=== PATIENT | female | born 1970 | race Caucasian/White ===

== ENCOUNTER → 2024-04-29 11:10 | Outpatient (REF) | payer OTHER, SELFPAY ==
[2024-04-30 15:58] LABS: Rubeola (Measles) IgG Positive; Varicella Zoster IgG (VZV) Positive
[2024-04-30 19:41] LABS: Rubella Positive
[2024-04-30 20:00] LABS: Hepatitis B Surface Antibody Positive
[2024-05-01 11:18] LABS: Mumps Virus IgG Positive
[2024-05-01 23:33] LABS: Quantiferon Mitogen minus NIL 9.97 IU/mL; Quantiferon NIL 0.03 IU/mL; Quantiferon Plus TB1 minus NIL 0.01 IU/mL (<=0.34); Quantiferon Plus TB2 minus NIL 0.01 IU/mL (<=0.34); Quantiferon TB Gold Plus Negative (Negative)
== END ==
LOC: OHS 11:10
PROVIDERS: ATTENDING PHYSICIAN Nurse Practitioner Family
DX: Z23 Encounter for immunization (principal)
CPT/HCPCS: 36415; 86480; 86706; 86735; 86762; 86765; 86787

== ENCOUNTER 2025-09-19 19:55 | Emergency (ER) | payer BC, SELFPAY ==
[2025-09-19 20:03] VITALS: BP 155/77
--- NOTE | 2025-09-19 21:15 | ED.MUSCINJ ---
HPI-Injury
General
Chief Complaint: Musculo-Skeletal Complaint
Time Seen by Provider: 09/19/25 21:02
Nursing documentation reviewed up to this point in time: agreed with
History of Present Illness-Injury
Is this injury a work related problem?: No
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
Initial Injury comments:
55-year-old female presents to the ER for evaluation of right upper extremity discomfort after she fell earlier today. Patient states that she missed the last step walking down into her basement. She landed with her right arm tucked underneath her
body. She denies head injury or loss of consciousness. No pain in the neck. She reports pain greatest at the right elbow. She is right-handed. She states that she also rolled her right ankle but has been able to ambulate without any difficulty.
She also notes an abrasion to her knee. She has not taken any pain relievers for her discomforts prior to arrival.
Review of Systems
Review of Systems
Allergies reviewed?: Yes
Phy Exam
Physical Exam
Physical Exam:
Patient is awake, alert, appears no acute distress, head is normocephalic atraumatic, moving neck without apparent limitation, GCS is 15, right upper extremity exam reveals localized pain on palpation over the proximal radius, no pain or deformity
on palpation of right shoulder, right humerus, right forearm, right wrist, brisk cap refill present to the digits of the right hand, 2+ radial pulse present, right lower extremity exam reveals superficial abrasion present on the anterior surface of
the right knee, no joint effusion noted, no pain on palpation over proximal fibula, mild pain on palpation distal lower leg without swelling noted to the ankle, no laxity on strength testing, no pain on palpation over the fifth metatarsal, 2+ DP
pulse present, brisk cap refill present to the toes.
Injury Course
Orders/Labs/Results
Orders:
Orders
09/19/25 20:06
CR Elbow - Right Min 3 Views Urgent
Comment:
Reason For Exam: pain s/p fall
Humerus, Right 2 Views [CR Humerus - Right Min 2 View*] Urgent
Comment:
Reason For Exam: pain s/p fall
Wrist, Right 3 Views [CR Wrist - Right Min 3 Views] Urgent
Comment:
Reason For Exam: pain s/p fall
09/19/25 21:06
Splints/Slings/Crut- Treatment ONCE
Sling to: Right Arm
MDM/Problems Addressed
Differential Diagnosis Includes:
Differential diagnosis to consider but not limited to sprain, strain, fracture along with other etiologies considered
Chronic conditions affecting care:
None
*Radiology
Radiology exam reviewed: preliminary read by ED provider (I independently viewed and interpreted x-ray of the right elbow showing nondisplaced radial head fracture. I independently viewed and interpreted x-rays of the right shoulder and right wrist
without evidence of fracture.) and radiology read reviewed (Radial head fracture only)
*Pulse Oximetry
SaO2: 98
Oxygen Mode of Delivery: Room air
Patient hypoxic: no
*Critical Care Note
Total Time (30-74mins, 75-104mins- exclusive of procedures): Not Applicable
Update Note
Update Note:
I discussed with patient clinical exam consistent with mild ankle sprain, no indication for immobilization as she is able to ambulate and has no focal bony pain on palpation. I discussed with patient presence of radial head fracture and supportive
treatment of same. Patient agrees with plan for sling and close outpatient [id number] has been seen at [facility] previously by both Drs. Argueta and Radha and would like to follow-up with them. Will provide x-ray images for discharge.
Patient declining need for analgesia at the current time, but expressed understanding of discharge medications along with use of ice. She has no questions at the current time.
ED Attending Note
-
Portions of this chart may have been created with voice recognition software.� Occasional wrong word or��sound alike� substitutions may have occurred due to the inherent limitations of voice recognition software.
Discharge Plan
Departure
Patient Disposition: Home (Routine Discharge)
Date of Disposition: 09/19/25
Time of Disposition: 21:19
Patient with high blood pressure during this ER visit?: No
Discharge Problem:
Closed fracture of radial head, Ankle sprain, Abrasion of knee
Instructions: Elbow Fracture, Adult ED, Ankle sprain - ED (DC), Abrasions - ED (DC)
Referrals:
Alphonso Garcia MD [Non-Admitting Privileges, Orthopedics] - Next open appointment
Activity Restrictions/Additional Instructions:
Wear sling at all times except when bathing until you are seen in follow-up. Use ice for 20 minutes intermittently throughout the day to help with pain and swelling. You may also use [id number] Tylenol and ibuprofen as per package
instructions to help with discomfort. Please contact orthopedics office in the morning to schedule appointment for reevaluation and further care. Return to the ER for any concerns
Interventions
Interventions:
*Risk Screen - Suicide Last Done: 09/19/25 20:03
*General Assessment Last Done: 09/19/25 20:03
*Neglect/Abuse Screening Last Done: 09/19/25 21:42
*ED- Fall Risk Assessment Last Done: 09/19/25 20:03
*ED COVID-19 Vaccine History Last Done: 09/19/25 20:03
*ED Influenza Vaccine History Last Done: 09/19/25 20:03
*Nursing Disposition Last Done: 09/19/25 21:53
ED-Musculoskeletal Assessment Last Done: 09/19/25 21:42
Discharge Date and Time
Discharge Date/Time: 09/19/25 21:54
Print Language: MALAY
== END 2025-09-19 21:54 | disposition home or self-care (01) ==
LOC: EMR 19:55
PROVIDERS: EMERGENCY PHYSICIAN Emergency Medicine
DX: S52.124A Nondisplaced fracture of head of right radius, initial encounter for closed fracture (principal); S93.401A Sprain of unspecified ligament of right ankle, initial encounter; S80.211A Abrasion, right knee, initial encounter; W10.8XXA Fall (on) (from) other stairs and steps, initial encounter; X50.1XXA Overexertion from prolonged static or awkward postures, initial encounter; Y93.01 Activity, walking, marching and hiking; Y92.008 Other place in unspecified non-institutional (private) residence as the place of occurrence of the external cause
CPT/HCPCS: 99283; 73060; 73080; 73110

== ENCOUNTER 2025-10-18 09:53 | Outpatient (RCR) | payer BC, SELFPAY | END 2025-10-18 23:59 | disposition home or self-care (01) | LOC: ROT 09:53 | PROVIDERS: ATTENDING PHYSICIAN Orthopaedic Surgery Orthopaedic Trauma; FAMILY PHYSICIAN Family Medicine | DX: S53.00 Unspecified subluxation and dislocation of radial head (principal); S52.124D Nondisplaced fracture of head of right radius, subsequent encounter for closed fracture with routine healing; Z73.6 Limitation of activities due to disability; M62.81 Muscle weakness (generalized); W19.XXXD Unspecified fall, subsequent encounter | CPT/HCPCS: 97010; 97110; 97166; 97535 ==